=== PATIENT | female | born 1965 | race African-American/Black ===

== ENCOUNTER → 2017-06-24 | Outpatient (CLI) | payer OTHER ==
[2017-06-24 10:16] LABS: ALBUMIN 3.6 g/dL (3.4-5.0); ALBUMIN/GLOBULIN RATIO 0.8 (1.0-1.7); ALK PHOS 141 U/L (46-116); ALT (SGPT) 42 U/L (14-59); ANION GAP 7 (6-14); AST (SGOT) 30 U/L (15-37); BLOOD UREA NITROGEN 12 mg/dL (7-20); BUN/CREATININE RATIO 12 (6-20); CALCIUM 9.3 mg/dL (8.5-10.1); CARBON DIOXIDE 31 mmol/L (21-32); CHLORIDE 103 mmol/L (98-107); CHOLESTEROL 190 mg/dL (0-200); CREATINE KINASE 116 U/L (26-192); GFR 70.2; GLUCOSE 248 mg/dL (70-99); HDLC 32 mg/dL (40-60); LDLC 114 mg/dL (0-100); NON-HDL CHOLESTEROL 158 mg/dL (0-129); POTASSIUM 3.9 mmol/L (3.5-5.1); SODIUM 141 mmol/L (136-145); TOTAL BILIRUBIN 0.2 mg/dL (0.2-1.0); TOTAL PROTEIN 8.3 g/dL (6.4-8.2); TRIGLYCERIDES 219 mg/dL (0-150); VLDLC 44 mg/dL (0-40)
[2017-06-24 10:18] LABS: CHOLESTEROL/HDL RATIO 5.9
[2017-06-24 10:29] LABS: THYROID STIM HORMONE (TSH) 0.477 uIU/mL (0.358-3.74)
[2017-06-24 10:30] LABS: VITAMIN-B12 636 pg/mL (247-911)
== END | disposition home or self-care (01) ==
LOC: LAB 09:46
DX: R20.2 Paresthesia of skin (principal); E55.9 Vitamin D deficiency, unspecified; E78.5 Hyperlipidemia, unspecified
CPT/HCPCS: 36415; 80053; 80061; 82306; 82550; 82607; 84439; 84443

== ENCOUNTER 2018-02-12 20:32 | Observation (INO) | payer OTHER ==
[~2018-02-12] VITALS: Ht 152.4 cm; Wt 55.8 kg
[~2018-02-12 20:32] MED LIST: GLIM4TAB2 PO; HYDR12.58 PO; INSU100I17 SQ; INSU100I27 SQ; LOSA100T7 PO; METF10007 PO; PRED20TA PO; SITA100T PO
--- NOTE | 2018-02-12 20:39 | PHYS DOC ---
Adult General Chief Complaint Chief Complaint: DIZZY/LIGHT HEADED HPI HPI Patient is a 52 year old female who presents with vertigo and HTN She was well until 2 days ago when she had gradual onset of vertigo. This got progressively worse with vomiting and ataxia. She has frontal headache as well. She denies any focal weakness. She has not been able to take her blood pressure medications secondary to vomiting. She went to her primary doctor at [facility] who then sent her to the emergency department for further evaluation. There is concern for stroke. Review of Systems Review of Systems Constitutional: Denies fever or chills Eyes: Denies change in visual acuity, redness, or eye pain HENT: Denies nasal congestion or sore throat Respiratory: Denies cough or shortness of breath Cardiovascular: Denies chest pain or palpitations GI: Denies abdominal pain, with nausea and vomiting, denies bloody stools or diarrhea : Denies dysuria or hematuria Musculoskeletal: Denies back pain or joint pain Integument: Denies rash or skin lesions Neurologic: With headache and vertigo, no focal weakness or sensory changes Endocrine: Denies polyuria or polydipsia All other systems were reviewed and found to be within normal limits, except as documented in this note. Current Medications Current Medications Current Medications Medications (Trade) Dose Ordered Sig/Radha Start Time Stop Time Status Last Admin Dose Admin Meclizine HCl (Antivert) 25 mg 1X ONCE 02/12/18 21:30 02/12/18 21:31 DC 02/12/18 22:00 25 MG Ondansetron HCl (Zofran) 4 mg 1X ONCE 02/12/18 21:30 02/12/18 21:31 DC 02/12/18 21:30 4 MG Allergies Allergies Allergies Coded Allergies Type Severity Reaction Last Updated Verified codeine Allergy Intermediate Rash 02/12/18 Yes Physical Exam Physical Exam Constitutional: Well developed, well nourished, no acute distress, non-toxic appearance. HENT: Normocephalic, atraumatic, bilateral external ears normal, oropharynx moist, no oral exudates, nose normal. Eyes: PERRLA, EOMI, conjunctiva normal, no discharge. Neck: Normal range of motion, no tenderness, supple, no stridor. Cardiovascular:Heart rate regular rhythm, no murmur Lungs & Thorax: Bilateral breath sounds clear to auscultation Abdomen: Bowel sounds normal, soft, no tenderness, no masses, no pulsatile masses. Skin: Warm, dry, no erythema, no rash. Back: No tenderness, no CVA tenderness. Extremities: No tenderness, no cyanosis, no clubbing, ROM intact, no edema. 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 with bilateral nystagmus and ataxia Psychologic: Affect normal, judgement normal, mood normal. Current Patient Data Vital Signs Vital Signs Date Time Temp Pulse Resp B/P (MAP) Pulse Ox O2 Delivery O2 Flow Rate FiO2 02/12/18 23:16 77 18 99 02/12/18 20:45 98.6 214/90 (131) Room Air 98.6 Lab Values Laboratory Tests Test 02/12/18 21:17 White Blood Count 5.9 x10^3/uL (4.0-11.0) Red Blood Count 4.14 x10^6/uL (3.50-5.40) Hemoglobin 12.7 g/dL (12.0-15.5) Hematocrit 36.5 % (36.0-47.0) Mean Corpuscular Volume 88 fL (79-100) Mean Corpuscular Hemoglobin 31 pg (25-35) Mean Corpuscular Hemoglobin Concent 35 g/dL (31-37) Red Cell Distribution Width 14.0 % (11.5-14.5) Platelet Count 184 x10^3/uL (140-400) Neutrophils (%) (Auto) 61 % (31-73) Lymphocytes (%) (Auto) 27 % (24-48) Monocytes (%) (Auto) 6 % (0-9) Eosinophils (%) (Auto) 5 % (0-3) H Basophils (%) (Auto) 1 % (0-3) Neutrophils # (Auto) 3.6 x10^3uL (1.8-7.7) Lymphocytes # (Auto) 1.6 x10^3/uL (1.0-4.8) Monocytes # (Auto) 0.4 x10^3/uL (0.0-1.1) Eosinophils # (Auto) 0.3 x10^3/uL (0.0-0.7) Basophils # (Auto) 0.0 x10^3/uL (0.0-0.2) Urine Collection Type Unknown Urine Color Yellow Urine Clarity Clear Urine pH 8.0 Urine Specific [place] 1.010 Urine Protein 100 mg/dL (NEG-TRACE) Urine Glucose (UA) 100 mg/dL (NEG) Urine Ketones (Stick) Negative mg/dL (NEG) Urine Blood Trace (NEG) Urine Nitrite Negative (NEG) Urine Bilirubin Negative (NEG) Urine Urobilinogen Dipstick 0.2 mg/dL (0.2 mg/dL) Urine Leukocyte Esterase Negative (NEG) Urine RBC Occ /HPF (0-2) Urine WBC 5-10 /HPF (0-4) Urine Squamous Epithelial Cells Few /LPF Urine Bacteria Moderate /HPF (0-FEW) Sodium Level 141 mmol/L (136-145) Potassium Level 3.4 mmol/L (3.5-5.1) L Chloride Level 102 mmol/L (98-107) Carbon Dioxide Level 29 mmol/L (21-32) Anion Gap 10 (6-14) Blood Urea Nitrogen 12 mg/dL (7-20) Creatinine 0.9 mg/dL (0.6-1.0) Estimated GFR (Cockcroft-Gault) 79.3 BUN/Creatinine Ratio 13 (6-20) Glucose Level 187 mg/dL (70-99) H Calcium Level 9.7 mg/dL (8.5-10.1) Total Bilirubin 0.5 mg/dL (0.2-1.0) Aspartate Amino Transferase (AST) 44 U/L (15-37) H Alanine Aminotransferase (ALT) 60 U/L (14-59) H Alkaline Phosphatase 109 U/L (46-116) Troponin I Quantitative < 0.017 ng/mL (0.000-0.055) Total Protein 9.1 g/dL (6.4-8.2) H Albumin 4.3 g/dL (3.4-5.0) Albumin/Globulin Ratio 0.9 (1.0-1.7) L Laboratory Tests 02/12/18 21:17 Laboratory Tests 02/12/18 21:17 EKG EKG ECG 21:24 NSR @ 75 with normal axis, normal intervals and no acute ST-T wave changes suggestive of ischemia Radiology/Procedures Radiology/Procedures [facility] [address] [place] [address] IMAGING REPORT Signed PATIENT: SWATI BROWN ACCOUNT: [id number] : 1965 LOCATION: ER AGE: 52 SEX: F EXAM STATUS: REG ER ORD. PHYSICIAN: DAWOOD SPARKS MD REASON: Vertigo PROCEDURE: CT HEAD WO CONTRAST EXAM: CT HEAD WITHOUT CONTRAST. HISTORY: Vertigo. TECHNIQUE: Computed tomography of the head was performed without intravenous contrast. COMPARISON: 06/08/2015, 08/03/2014. FINDINGS: There is no intracranial hemorrhage. Quinteros-white differentiation is preserved. The right pontine lesion noted on prior MRI is not detectable by this technique. The ventricles are normal in size and position. The visualized paranasal sinuses appear clear. The orbits are unremarkable. The temporal bones are unremarkable. The calvarium reveals no suspicious lesions. There are atherosclerotic calcifications of the internal carotid and vertebral arteries. IMPRESSION: 1. No acute intracranial findings. MRI is more sensitive if there is persistent concern. *One or more of the following individualized dose reduction techniques were utilized for this examination: 1. Automated exposure control. 2. Adjustment of the mA and/or kV according to patient size. 3. Use of iterative reconstruction technique. Electronically signed by: Elza Duran MD (02/12/2018 9:51 PM) [facility] DICTATED and SIGNED BY: TY DURAN MD DATE: 02/12/182145 Course & Med Decision Making Course & Med Decision Making Pertinent Labs and Imaging studies reviewed. (See chart for details) Emergency Department Course Patient presents with vertigo,headache and vomiting DDx- vertigo, CVA, ICH, arrhythmia, dehydration Patient was hypertensive in the ED with persistent vertigo despite meclizine. BP improved after Labetalol IV. Head CT scan unremarkable. ECG and troponin showed no evidence of ACS. Labs remarkable for mild hypokalemia. Noting persistent vertigo, will admit for CVA evaluation. 23:00 Patient has persistent vertigo and elevated blood pressure. The patient she is agreeable for admission for further evaluation for CVA. 23:[address] Grimaldo who agrees with admission Dragon Disclaimer Dragon Disclaimer This electronic medical record was generated, in whole or in part, using a voice recognition dictation system. Departure Departure Impression: Primary Impression: Vertigo Additional Impression: Uncontrolled hypertension Disposition: 09 ADMITTED INPATIENT Admitting Physician: Santi Grimaldo Condition: STABLE Referrals: SAL FOWLER MD (PCP) Problem Qualifiers DAWOOD SPARKS MD Feb 12, 2018 20:39
[2018-02-12 21:29] LABS: BASO % 1 % (0-3); EOS # 0.3 x10^3/uL (0.0-0.7); EOS % 5 % (0-3); HEMATOCRIT 36.5 % (36.0-47.0); HEMOGLOBIN 12.7 g/dL (12.0-15.5); LYMPH # 1.6 x10^3/uL (1.0-4.8); LYMPH % 27 % (24-48); MEAN CORPUSCULAR HEMOGLOBIN 31 pg (25-35); MEAN CORPUSCULAR HGB CONC 35 g/dL (31-37); MEAN CORPUSCULAR VOLUME 88 fL (79-100); MONO # 0.4 x10^3/uL (0.0-1.1); MONO % 6 % (0-9); NEUT # 3.6 x10^3uL (1.8-7.7); NEUT % 61 % (31-73); PLATELET COUNT 184 x10^3/uL (140-400); RED BLOOD COUNT 4.14 x10^6/uL (3.50-5.40); WHITE BLOOD COUNT 5.9 x10^3/uL (4.0-11.0)
[2018-02-12 21:30] LABS: BILIRUBIN,URINE NEGATIVE (NEG); CLARITY,URINE CLEAR; COLOR,URINE YELLOW; NITRITE,URINE NEGATIVE (NEG); PROTEIN,URINE 100 mg/dL (NEG-TRACE); UROBILINOGEN,URINE 0.2 mg/dL (0.2 mg/dL)
[2018-02-12] MEDS ORDERED: MECLIZINE HCL 12.5 MG TABLET. PO ONE (21:30)
[2018-02-12] MEDS ORDERED: ONDANSETRON PF 4 MG/2 ML VIAL. IV ONE (21:30)
--- NOTE | 2018-02-12 21:31 | EKG ---
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
[2018-02-12 21:36] LABS: CALCIUM 9.7 mg/dL (8.5-10.1); CREATININE 0.9 mg/dL (0.6-1.0); GFR 79.3; POTASSIUM 3.4 mmol/L (3.5-5.1)
[2018-02-12 21:42] LABS: ALBUMIN 4.3 g/dL (3.4-5.0); ALBUMIN/GLOBULIN RATIO 0.9 (1.0-1.7); TOTAL BILIRUBIN 0.5 mg/dL (0.2-1.0); TOTAL PROTEIN 9.1 g/dL (6.4-8.2)
[2018-02-12 21:44] LABS: BACTERIA,URINE MODERATE /HPF (0-FEW); RBC,URINE OCC /HPF (0-2); SQUAMOUS EPITHELIAL CELL,UR FEW /LPF
--- NOTE | 2018-02-12 21:54 | RAD ---
EXAM: CT HEAD WITHOUT CONTRAST. HISTORY: Vertigo. TECHNIQUE: Computed tomography of the head was performed without intravenous contrast. COMPARISON: 06/08/2015, 08/03/2014. FINDINGS: There is no intracranial hemorrhage. Quinteros-white differentiation is preserved. The right pontine lesion noted on prior MRI is not detectable by this technique. The ventricles are normal in size and position. The visualized paranasal sinuses appear clear. The orbits are unremarkable. The temporal bones are unremarkable. The calvarium reveals no suspicious lesions. There are atherosclerotic calcifications of the internal carotid and vertebral arteries. IMPRESSION: 1. No acute intracranial findings. MRI is more sensitive if there is persistent concern. *One or more of the following individualized dose reduction techniques were utilized for this examination: 1. Automated exposure control. 2. Adjustment of the mA and/or kV according to patient size. 3. Use of iterative reconstruction technique. Electronically signed by: Elza Duran MD (02/12/2018 9:51 PM) [facility]
[2018-02-12] MEDS ORDERED: LABETALOL 20 MG/4 ML DISP.SYRIN. IVP ONE (23:30)
[2018-02-13] MEDS ORDERED: ACETAMINOPHEN 500 MG TABLET PO ONE (01:00)
[2018-02-13 03:00] VITALS: BP 108/58
[2018-02-13] MEDS ORDERED: LOSA100T7 PO (03:45)
[2018-02-13] MEDS ORDERED: DOCU-109 PO (03:50)
[2018-02-13] MEDS ORDERED: INSU100V13 SQ (03:50)
[2018-02-13] MEDS ORDERED: TRAM50TA PO (03:50)
[2018-02-13] MEDS ORDERED: AMLO5TAB4 PO (03:50)
[2018-02-13] MEDS ORDERED: METF10007 PO (03:50)
[2018-02-13] MEDS ORDERED: ASPI-612 PO (03:50)
[2018-02-13] MEDS ORDERED: GABA-586 PO (03:50)
[2018-02-13] MEDS ORDERED: HYDR12.58 PO (03:50)
[2018-02-13 07:00] VITALS: BP_SYST 118; BP_SYST 97; BP_DIAS 61; BP_DIAS 62
[2018-02-13] MEDS ORDERED: DOCUSATE SODIUM 100 MG CAPSULE. PO PRN (08:30)
[2018-02-13] MEDS ORDERED: HYDROCHLOROTHIAZIDE PO SCH (09:00)
[2018-02-13] MEDS ORDERED: NON FORMULARY ITEM (Metformin Hcl 1 TAB) PO SCH (09:00)
[2018-02-13] MEDS ORDERED: ASPIRIN ENTERIC COATED 81 MG TABLET.DR. PO SCH (09:00)
[2018-02-13] MEDS ORDERED: LOSARTAN POTASSIUM PO SCH (09:00)
[2018-02-13] MEDS ORDERED: DEXTROSE 50% 25 GM / 50ML DISP.SYRIN. IV PRN (09:00)
[2018-02-13] MEDS ORDERED: INSULIN DETEMIR 60 UNIT SQ SCH (09:00)
--- NOTE | 2018-02-13 09:03 | PDOC ---
Provider Note Provider Note [id number] SAL FOWLER MD Feb 13, 2018 09:03
[2018-02-13] MEDS: amLODIPine BESYLATE 5 MG TABLET PO SCH (09:24)
[2018-02-13] MEDS: traMADol 50 MG TABLET PO PRN ×2 (09:24→22:09)
[2018-02-13] MEDS: GABAPENTIN 300 MG CAPSULE. PO SCH ×3 (09:24→22:09)
[2018-02-13] MEDS: LOSARTAN POTASSIUM 50 MG TABLET. PO SCH (10:00)
--- NOTE | 2018-02-13 10:39 | HP ---
ADMIT DATE: 02/13/2018 CHIEF COMPLAINT: Headache, nausea and dizziness. HISTORY OF PRESENT ILLNESS: A 52-year-old black female who is an insulin-dependent type 2 diabetic with controlled hypertension. 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 About 24-48 hours prior to admission, she developed diffuse frontal headache with light sensitivity and then nausea and vomiting, but not associated with throbbing, trauma, fever, chills, cough or any of the other specific complaints. She was unable to hold medicine down and her blood pressure was high when she was seen at urgent care, but she had been taking her medications regularly prior to that. CT scan of the head in the ER was unremarkable as were the lab work and she was admitted and feels somewhat better at this time. She has what sounds like vague feeling of dizziness, but not an overt vertigo. PAST MEDICAL HISTORY: Well-documented right thalamic infarct 2-3 years ago. Recent A1c in the office was around 7.2. Blood pressure has been controlled with 3 medications. ALLERGIES: LISTED TO CODEINE. SOCIAL HISTORY: She is employed. She is . Nondrinker, nonsmoker. FAMILY HISTORY: Unremarkable. REVIEW OF SYSTEMS: No other complaints. PHYSICAL EXAMINATION: ENT: All within normal limits. No nystagmus. TMs are clear. NECK: Revealed no carotid bruits, nodes, stiffness or meningeal signs. CARDIOVASCULAR: Regular rate. No irregular beat or murmur. ABDOMEN: Soft, benign and nontender. EXTREMITIES: Good pedal and radial pulses. No joint or skin lesions. NEUROLOGIC: Cerebellar function including [id number], [id number] and rapid alternating pain movements is unremarkable. He moves all extremities well. Sensory abnormal on the left side, arm and leg, with previous exams with no acute changes. Gait was not tested. Cranial nerves and mental status intact. EOMs are full. ASSESSMENT: Severe frontal headache associated with nausea, vomiting and photophobia. She has no history of migraines. She does have a history of a thalamic infarct, diabetes and hypertension. PLAN: MRI without contrast already ordered. We will check a sed rate, but doubt this is vasculitis. Unusual for migraine she developed postmenopausal, but certainly has some migrainous component to this. No sign of meningismus, so possibility of subarachnoid hemorrhage seems low at this time. Neurology consultation as well. SAL FOWLER MD DR: KEMI/abbi JOB#: [id number] / [id number]
[2018-02-13 11:00] VITALS: BP 97/62
[2018-02-13] MEDS: hydroCHLOROthiazide 12.5 MG CAPSULE PO SCH (11:18)
[2018-02-13] MEDS: metFORMIN 500 MG TABLET PO SCH ×2 (11:51→17:06)
[2018-02-13] MEDS ORDERED: NON FORMULARY ITEM (Insulin Aspart (Novolog Flexpen) 0 UNITS) SQ SCH (12:00)
[2018-02-13] MEDS ORDERED: ACETAMINOPHEN 650 MG SUPP.RECT. PR PRN (14:00)
[2018-02-13] MEDS ORDERED: ASPIRIN 300 MG SUPP.RECT PR PRN (14:00)
[2018-02-13 15:04] VITALS: BP 110/63
--- NOTE | 2018-02-13 15:42 | PDOC2 ---
NEUROLOGY CONSULT Date of Admission Date of Admission DATE: 02/13/18 TIME: 15:33 Reason for Consult Reason for Consult: vertigo Referring Physician Referring Physician: Dr. Stone Source Source: Chart review, Patient History of Present Illness History of Present Illness The patient is a 52-year-old right-handed female with history of right pontine infarct with microhemorrhage (MRI, 06/08/15), who noticed the gradual onset of vertigo yesterday. She also had a headache. There was no diplopia, dysphagia, but she had some trouble speaking and thinking. Her blood pressure was high, 214 /90 in the emergency room. She is feeling better now. She has seen Dr. Doherty for persistent neuralgic pain on the left side of her body following the stroke. She is treating her with gabapentin which helped some. Carotid artery studies and echocardiogram were -2 years ago. Laboratory studies were positive for low vitamin D level recently. Past Medical History Cardiovascular: HTN CENTRAL NERVOUS SYSTEM: CVA GI: Hemorrhoids Endocrine: Diabetes Past Surgical History Past Surgical History: Tubal Ligation Family History Family History: No pertinent hx (adopted) Social History Social History , no tobacco or alcohol Current Medications Current Medications Current Medications Ondansetron HCl (Zofran) 4 mg 1X ONCE IV Last administered on 02/12/18at 21:30 ; Start 02/12/18 at 21:30; Stop 02/12/18 at 21:31; Status DC Meclizine HCl (Antivert) 25 mg 1X ONCE PO Last administered on 02/12/18at 22: 00; Start 02/12/18 at 21:30; Stop 02/12/18 at 21:31; Status DC Labetalol HCl (Normodyne Iv Push) 20 mg 1X ONCE IVP Last administered on 02/13at 00:30; Start 02/12/18 at 23:30; Stop 02/12/18 at 23:31; Status DC Acetaminophen (Tylenol) 1,000 mg 1X ONCE PO Last administered on 02/13/18at 00 :54; Start 02/13/18 at 01:00; Stop 02/13/18 at 01:01; Status DC Amlodipine Besylate (Norvasc) 5 mg DAILY PO Last administered on 02/13/18at 09: 24; Start 02/13/18 at 09:00 Aspirin (Ecotrin) 81 mg DAILY08 PO Last administered on 02/13/18at 09:24; Start 02/13/18 at 09:00; Stop 02/13/18 at 14:52; Status DC Docusate Sodium (Colace) 100 mg PRN DAILY PRN PO HARD STOOLS; Start 02/13/18 at 08:30 Tramadol HCl (Ultram) 50 mg PRN Q6HRS PRN PO PAIN MILD Last administered on 03/23at 09:24; Start 02/13/18 at 08:30 Gabapentin (Neurontin) 300 mg TID PO Last administered on 02/13/18at 09:24; Start 02/13/18 at 09:00 Hydrochlorothiazide (Microzide) 12.5 mg DAILY PO ; Start 02/13/18 at 10:00 Non-Formulary Medication (Hydrochlorothiazide (Hydrochlorothiazide Tablet)) 2 tab DAILY PO ; Start 02/13/18 at 09:00; Stop 02/13/18 at 09:00; Status DC Non-Formulary Medication (Insulin Aspart (Novolog Flexpen)) TIDWMEALS SQ ; Start 02/13/18 at 12:00; Stop 02/13/18 at 12:00; Status DC Non-Formulary Medication (Insulin Detemir (Levemir Flextouch)) 60 units DAILY SQ ; Start 02/13/18 at 09:00; Stop 02/13/18 at 09:00; Status DC Insulin Glargine (Lantus) 105 units QHS SQ ; Start 02/13/18 at 21:00 Non-Formulary Medication (Losartan Potassium ) 1 tab DAILY PO ; Start 02/13/18 at 09:00; Status UNV Losartan Potassium (Cozaar) 100 mg DAILY PO ; Start 02/13/18 at 10:00 Non-Formulary Medication (Metformin Hcl ) 1 tab BID PO ; Start 02/13/18 at 09: 00; Stop 02/13/18 at 09:00; Status DC Metformin HCl (Glucophage) 1,000 mg BIDWMEALS PO Last administered on at 11:51; Start 02/13/18 at 09:30 Dextrose (Dextrose 50%-Water Syringe) 12.5 gm PRN Q15MIN PRN IV SEE COMMENTS; Start 02/13/18 at 09:00 Acetaminophen (Tylenol) 650 mg PRN Q6HRS PRN PO TEMP > 100.4F; Start 02/13/18 at 14:00 Acetaminophen (Tylenol Supp) 650 mg PRN Q4HRS PRN MI TEMP > 100.4F; Start 03/23 at 14:00 Aspirin (Ecotrin) 325 mg DAILYWBKFT PO ; Start 02/14/18 at 08:00 Aspirin (Aspirin) 300 mg PRN DAILY PRN MI IF UNABLE TO TAKE PO; Start at 14:00 Active Scripts Active Prednisone 20 Mg Tablet 50 Mg PO DAILY Levemir Flextouch (Insulin Detemir) 300 Units/3 Ml Insuln.pen 60 Units SQ DAILY Novolog Flexpen (Insulin Aspart) 300 Units/3 Ml Insuln.pen 0 Units SQ TIDWMEALS Reported Levemir (Insulin Detemir) 100 Unit/1 Ml Vial 105 Unit SQ HS Colace (Docusate Sodium) 100 Mg Capsule 1 Cap PO PRN DAILY Aspirin Ec (Aspirin) 81 Mg Tablet.dr 1 Tab PO DAILY Tramadol Hcl 50 Mg Tablet 50 Mg PO Q6HRS PRN Metformin Hcl 1,000 Mg Tablet 1,000 Mg PO BID Gabapentin 300 Mg Capsule 300 Mg PO TID Norvasc (Amlodipine Besylate) 5 Mg Tablet 1 Tab PO DAILY Hydrochlorothiazide Tablet (Hydrochlorothiazide) 12.5 Mg Tablet 2 Tab PO DAILY Losartan Potassium 100 Mg Tablet 100 Mg PO DAILY Hydrochlorothiazide Tablet (Hydrochlorothiazide) 12.5 Mg Tablet 1 Tab PO DAILY Metformin Hcl 1,000 Mg Tablet 1 Tab PO BID Losartan Potassium 100 Mg Tablet 1 Tab PO DAILY Allergies Allergies: Coded Allergies: codeine (Verified Allergy, Intermediate, Rash, 02/12/18) ROS Review of System Patient denies fevers, chills, weight loss, dyspnea, angina, abdominal pain, change in bowels, or dysuria. 14-point review of systems is negative. Physical Exam Physical Examination General: Well-developed, well-nourished, black female, in no acute distress HEENT: Normocephalic andatraumatic. Temporal arteriespulsatile and nontender. Neck: Supple without bruit, no meningismus Musculoskeletal: Stability:see neurologic. Gait exam:see neurologic. Tone:see neurologic. Strength:see neurologic. Neurological: Mental Status:intact, orientation, memory, attention span/concentration, language, fund of knowledge normal. Cranial Nerves:Pupils equal and reactive to light, extraocular movements areintact, visual hernadez are full to confrontation. Facial sensation is normal. There is no facial asymmetry. Vestibulo-ocular reflex is intact. Palate elvates and tongue protrudes in midline. All other cranial related problems are negative except as mentioned before.Reflexes:2+ and symmetric with flexor plantar responses. Motor:5/5 strength with normal tone and bulk. Coordination:Finger-nose finger and heel-to -richards testing are normal. Rapid alternating movements and fine finger movements are intact. Gait:Normal, including tandem. Sensory:Hypesthesia on left side. Vitals VITALS Vital Signs Date Time Temp Pulse Resp B/P (MAP) Pulse Ox O2 Delivery O2 Flow Rate FiO2 02/13/18 15:04 98.3 82 20 110/63 (79) 97 Room Air 98.3 Labs Labs Laboratory Tests Test 02/12/18 21:17 02/13/18 10:50 White Blood Count 5.9 x10^3/uL (4.0-11.0) Red Blood Count 4.14 x10^6/uL (3.50-5.40) Hemoglobin 12.7 g/dL (12.0-15.5) Hematocrit 36.5 % (36.0-47.0) Mean Corpuscular Volume 88 fL (79-100) Mean Corpuscular Hemoglobin 31 pg (25-35) Mean Corpuscular Hemoglobin Concent 35 g/dL (31-37) Red Cell Distribution Width 14.0 % (11.5-14.5) Platelet Count 184 x10^3/uL (140-400) Neutrophils (%) (Auto) 61 % (31-73) Lymphocytes (%) (Auto) 27 % (24-48) Monocytes (%) (Auto) 6 % (0-9) Eosinophils (%) (Auto) 5 % (0-3) Basophils (%) (Auto) 1 % (0-3) Neutrophils # (Auto) 3.6 x10^3uL (1.8-7.7) Lymphocytes # (Auto) 1.6 x10^3/uL (1.0-4.8) Monocytes # (Auto) 0.4 x10^3/uL (0.0-1.1) Eosinophils # (Auto) 0.3 x10^3/uL (0.0-0.7) Basophils # (Auto) 0.0 x10^3/uL (0.0-0.2) Urine Collection Type Unknown Urine Color Yellow Urine Clarity Clear Urine pH 8.0 Urine Specific [place] 1.010 Urine Protein 100 mg/dL (NEG-TRACE) Urine Glucose (UA) 100 mg/dL (NEG) Urine Ketones (Stick) Negative mg/dL (NEG) Urine Blood Trace (NEG) Urine Nitrite Negative (NEG) Urine Bilirubin Negative (NEG) Urine Urobilinogen Dipstick 0.2 mg/dL (0.2 mg/dL) Urine Leukocyte Esterase Negative (NEG) Urine RBC Occ /HPF (0-2) Urine WBC 5-10 /HPF (0-4) Urine Squamous Epithelial Cells Few /LPF Urine Bacteria Moderate /HPF (0-FEW) Sodium Level 141 mmol/L (136-145) Potassium Level 3.4 mmol/L (3.5-5.1) Chloride Level 102 mmol/L (98-107) Carbon Dioxide Level 29 mmol/L (21-32) Anion Gap 10 (6-14) Blood Urea Nitrogen 12 mg/dL (7-20) Creatinine 0.9 mg/dL (0.6-1.0) Estimated GFR (Cockcroft-Gault) 79.3 BUN/Creatinine Ratio 13 (6-20) Glucose Level 187 mg/dL (70-99) Calcium Level 9.7 mg/dL (8.5-10.1) Total Bilirubin 0.5 mg/dL (0.2-1.0) Aspartate Amino Transf (AST/SGOT) 44 U/L (15-37) Alanine Aminotransferase (ALT/SGPT) 60 U/L (14-59) Alkaline Phosphatase 109 U/L (46-116) Troponin I Quantitative < 0.017 ng/mL (0.000-0.055) Total Protein 9.1 g/dL (6.4-8.2) Albumin 4.3 g/dL (3.4-5.0) Albumin/Globulin Ratio 0.9 (1.0-1.7) Erythrocyte Sedimentation Rate 51 (0-25) Laboratory Tests Test 02/12/18 21:17 02/13/18 10:50 White Blood Count 5.9 x10^3/uL (4.0-11.0) Red Blood Count 4.14 x10^6/uL (3.50-5.40) Hemoglobin 12.7 g/dL (12.0-15.5) Hematocrit 36.5 % (36.0-47.0) Mean Corpuscular Volume 88 fL (79-100) Mean Corpuscular Hemoglobin 31 pg (25-35) Mean Corpuscular Hemoglobin Concent 35 g/dL (31-37) Red Cell Distribution Width 14.0 % (11.5-14.5) Platelet Count 184 x10^3/uL (140-400) Neutrophils (%) (Auto) 61 % (31-73) Lymphocytes (%) (Auto) 27 % (24-48) Monocytes (%) (Auto) 6 % (0-9) Eosinophils (%) (Auto) 5 % (0-3) Basophils (%) (Auto) 1 % (0-3) Neutrophils # (Auto) 3.6 x10^3uL (1.8-7.7) Lymphocytes # (Auto) 1.6 x10^3/uL (1.0-4.8) Monocytes # (Auto) 0.4 x10^3/uL (0.0-1.1) Eosinophils # (Auto) 0.3 x10^3/uL (0.0-0.7) Basophils # (Auto) 0.0 x10^3/uL (0.0-0.2) Urine Collection Type Unknown Urine Color Yellow Urine Clarity Clear Urine pH 8.0 Urine Specific [place] 1.010 Urine Protein 100 mg/dL (NEG-TRACE) Urine Glucose (UA) 100 mg/dL (NEG) Urine Ketones (Stick) Negative mg/dL (NEG) Urine Blood Trace (NEG) Urine Nitrite Negative (NEG) Urine Bilirubin Negative (NEG) Urine Urobilinogen Dipstick 0.2 mg/dL (0.2 mg/dL) Urine Leukocyte Esterase Negative (NEG) Urine RBC Occ /HPF (0-2) Urine WBC 5-10 /HPF (0-4) Urine Squamous Epithelial Cells Few /LPF Urine Bacteria Moderate /HPF (0-FEW) Sodium Level 141 mmol/L (136-145) Potassium Level 3.4 mmol/L (3.5-5.1) Chloride Level 102 mmol/L (98-107) Carbon Dioxide Level 29 mmol/L (21-32) Anion Gap 10 (6-14) Blood Urea Nitrogen 12 mg/dL (7-20) Creatinine 0.9 mg/dL (0.6-1.0) Estimated GFR (Cockcroft-Gault) 79.3 BUN/Creatinine Ratio 13 (6-20) Glucose Level 187 mg/dL (70-99) Calcium Level 9.7 mg/dL (8.5-10.1) Total Bilirubin 0.5 mg/dL (0.2-1.0) Aspartate Amino Transf (AST/SGOT) 44 U/L (15-37) Alanine Aminotransferase (ALT/SGPT) 60 U/L (14-59) Alkaline Phosphatase 109 U/L (46-116) Troponin I Quantitative < 0.017 ng/mL (0.000-0.055) Total Protein 9.1 g/dL (6.4-8.2) Albumin 4.3 g/dL (3.4-5.0) Albumin/Globulin Ratio 0.9 (1.0-1.7) Erythrocyte Sedimentation Rate 51 (0-25) Images Images Head CT: There is no intracranial hemorrhage. Quinteros-white differentiation is preserved. The right pontine lesion noted on prior MRI is not detectable by this technique. The ventricles are normal in size and position. The visualized paranasal sinuses appear clear. The orbits are unremarkable. The temporal bones are unremarkable. The calvarium reveals no suspicious lesions. There are atherosclerotic calcifications of the internal carotid and vertebral arteries. IMPRESSION: 1. No acute intracranial findings. MRI is more sensitive if there is persistent concern. Assessment/Plan Assessment/Plan Impression: Hypertensive encephalopathy, doubt new stroke Prior right pontine stroke with residual sensory symptoms on the left side Recommendations: Aspirin Check lipids, start statin if abnormal MRI of the brain Echocardiogram Carotid Doppler studies Rehabilitation screening Aim for discharge tomorrow if blood pressure remains stable and workup is negative. Thank you for letting me help with the patient's care. ANJALI ADEN MD Feb 13, 2018 15:42
--- NOTE | 2018-02-13 16:03 | RAD ---
MRI Brain without contrast History: Vertigo and dizziness for 3 days Technique: Multiplanar, multisequential noncontrast MR imaging was performed of the brain. Contrast: None Comparison: 06/08/2015 Findings: There is some motion degradation. There is no evidence of recent infarct or intracranial mass effect. Ventricular size is within normal limits. There are a few scattered foci of T2 and FLAIR hyperintense signal of the supratentorial parenchyma bilaterally probably unchanged allowing for motion for both exams. Previously seen T2 and FLAIR hyperintense signal of the right destiny has decreased, no appreciable residual signal change. There is a tiny likely old lacunar infarct of the inferior right cerebellum more apparent on this exam. There is preservation of the major arterial intracranial flow voids at the skull base although poorly evaluated in part from motion. The paranasal sinuses and the mastoid air cells are overall aerated. Cerebellar tonsils are normal in location. There is preserved marrow signal of the clivus. Impression: 1. There is no evidence of recent infarct or intracranial mass effect. Scattered mild T2 and FLAIR hyperintense signal of the supratentorial parenchyma is probably due to chronic microvascular ischemic disease, small old lacunar infarct of the right cerebellum now present. Electronically signed by: Yomi Carvajal MD (02/13/2018 4:00 PM) [id number]
[2018-02-13] MEDS: ACETAMINOPHEN 325 MG TABLET. PO PRN (16:17)
[2018-02-13 19:00] VITALS: BP 142/66
--- NOTE | 2018-02-13 19:56 | RAD ---
EXAM: Carotid Doppler sonogram. HISTORY: Vertigo, headache, hypertension, diabetes, transient ischemic attack. TECHNIQUE: Quinteros scale and color Doppler sonographic evaluation of the neck with spectral waveform analysis was performed and static images are submitted for review. FINDINGS: RIGHT: The peak systolic velocity within the common carotid artery is 86 cm/sec. The peak systolic velocity within the internal carotid artery is 98 cm/sec and the end diastolic velocity within the internal carotid artery is 24 cm/sec. The ICA/CCA ratio is 1.14. Grayscale images demonstrate no grayscale stenosis. LEFT: The peak systolic velocity within the common carotid artery is 121 cm/sec. The peak systolic velocity within the internal carotid artery is 88 cm/sec and the end diastolic velocity within the internal carotid artery is 24 cm/sec. The ICA/CCA ratio is 0.88. Grayscale images demonstrate no grayscale stenosis. There is antegrade flow within both vertebral arteries. IMPRESSION: 1. No evidence of hemodynamically significant stenosis. PQRS Compliance Statement - Stenosis calculations for CT, MR and conventional angiography are based upon measurement of the distal ICA diameter in accordance with the NASCET methodology. Stenosis calculations for carotid ultrasound studies are derived from validated velocity criteria which are known to correlate with the NASCET methodology. Electronically signed by: Elza Duran MD (02/13/2018 7:53 PM) [facility]
[2018-02-13] MEDS ORDERED: INSULIN GLARGINE 300 UNITS/3 ML INSULN.PEN. SQ SCH (21:00)
[2018-02-13 23:00] VITALS: BP 144/74
[2018-02-14 03:00] VITALS: BP 129/58
[2018-02-14] MEDS: ACETAMINOPHEN 325 MG TABLET. PO PRN (04:37)
[2018-02-14 05:32] LABS: CHOLESTEROL/HDL RATIO 5.6
[2018-02-14 07:00] VITALS: BP 117/64
[2018-02-14] MEDS ORDERED: ASPIRIN ENTERIC COATED 325 MG TABLET.DR. PO SCH (08:00)
--- NOTE | 2018-02-14 08:36 | DISCH ---
DISCHARGE INSTRUCTIONS Condition on Discharge Condition on Discharge: Stable Activity After Discharge Activity Instructions for Disc: Activity as tolerated Diet after Discharge Diet after Discharge: Diabetic No Calorie Level Checks after Discharge Checks after discharge: Check blood sugar, ac/hs Follow-Up Follow up with: as scheduled Treatment/Equipment after DC Adaptive Equipment Issued: None SAL FOWLER MD Feb 14, 2018 08:36
--- NOTE | 2018-02-14 08:39 | PDOC ---
Provider Note Provider Note [id number] SAL FOWLER MD Feb 14, 2018 08:39
[2018-02-14] MEDS: GABAPENTIN 300 MG CAPSULE. PO SCH (08:46)
[2018-02-14] MEDS: hydroCHLOROthiazide 12.5 MG CAPSULE PO SCH (08:47)
[2018-02-14] MEDS: LOSARTAN POTASSIUM 50 MG TABLET. PO SCH (08:47)
[2018-02-14 08:48] VITALS: BP 117/64
[2018-02-14] MEDS: amLODIPine BESYLATE 5 MG TABLET PO SCH (08:48)
[2018-02-14] MEDS: traMADol 50 MG TABLET PO PRN (08:48)
[2018-02-14] MEDS: metFORMIN 500 MG TABLET PO SCH (08:48)
--- NOTE | 2018-02-14 08:58 | DS ---
DATE OF DISCHARGE: 02/14/2018 HOSPITAL SUMMARY: A 52-year-old black female, known insulin-dependent type 2 diabetic with hypertension, came in with 2 days of nausea, vomiting, frontal headache and some vertigo-like dizziness. She had been on all her medications prior to the onset of the symptoms and no new recent medication changes. CBC and chemistry profile were unremarkable. Sed rate slightly elevated at 51 and ALT 60, AST 44, otherwise liver function tests were normal. Lipid profile, excellent cholesterol 178, HDL 32, LDL 100. Urine was clear except some protein and sugar present. CT scan of the head was normal. MRI of the brain without contrast showed no new recent infarct. There was a small area in the right destiny from previous CVA. Carotid Dopplers showed no hemodynamically significant stenosis. She was monitored. Home meds resumed and her blood pressure came down quickly. Blood pressure had not been higher prior to the onset of the symptoms, was not felt to be related to her headache. Blood sugars have been good. She is feeling somewhat better and is able to be followed as an outpatient at this point. FINAL DIAGNOSES: 1. Frontal headache and vertigo, etiology undetermined, possibly a viral syndrome. 2. Transaminitis, likely secondary to nonalcoholic fatty liver disease. OPERATIONS, PROCEDURES, COMPLICATIONS: None. CONSULTATIONS: Dr. Duran. DISPOSITION: Home meds remain the same at this point and office followup in 1 week. Wellbutrin has been added recently for depression, but was not causing headache after starting the medication. She will try some Excedrin Migraine for possible benefit of this type of headache and further testing as an outpatient should her symptoms persist. SAL FOWLER MD DR: KEMI/abbi JOB#: [id number] / [id number]
--- NOTE | 2018-02-14 11:57 | PDOC ---
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 Stone to start this as an outpatient. Patient already discharged from the time I saw her until I wrote this note. Follow-up with neurology as needed. Subjective Feels fine, wants to go home Objective Vital Signs Date Time Temp Pulse Resp B/P (MAP) Pulse Ox O2 Delivery O2 Flow Rate FiO2 02/14/18 09:48 Room Air 02/14/18 08:48 69 117/64 02/14/18 07:00 98.3 20 97 98.3 Intake and Output 02/14/18 07:00 Intake Total 630 ml Output Total 0 ml Balance 630 ml Intake Oral 630 ml Output Urine Total 0 ml # Voids 4 PHYSICAL EXAM Alert. Oriented to time, place and person. PERRL. EOMI. CN: no focal findings. Muscle tone: normal. Muscle strength: 5/5 DTR: 2+ Plantar reflex: flexor Gait: not examined in bed. Sensory exam: left hemihypesthesia No cerebellar signs elicited. Review of Relevant I have reviewed the following items brennan (where applicable) has been applied. Labs Laboratory Tests Test 02/12/18 21:17 02/13/18 10:50 02/13/18 22:00 02/14/18 04:10 White Blood Count 5.9 x10^3/uL (4.0-11.0) Red Blood Count 4.14 x10^6/uL (3.50-5.40) Hemoglobin 12.7 g/dL (12.0-15.5) Hematocrit 36.5 % (36.0-47.0) Mean Corpuscular Volume 88 fL (79-100) Mean Corpuscular Hemoglobin 31 pg (25-35) Mean Corpuscular Hemoglobin Concent 35 g/dL (31-37) Red Cell Distribution Width 14.0 % (11.5-14.5) Platelet Count 184 x10^3/uL (140-400) Neutrophils (%) (Auto) 61 % (31-73) Lymphocytes (%) (Auto) 27 % (24-48) Monocytes (%) (Auto) 6 % (0-9) Eosinophils (%) (Auto) 5 % (0-3) Basophils (%) (Auto) 1 % (0-3) Neutrophils # (Auto) 3.6 x10^3uL (1.8-7.7) Lymphocytes # (Auto) 1.6 x10^3/uL (1.0-4.8) Monocytes # (Auto) 0.4 x10^3/uL (0.0-1.1) Eosinophils # (Auto) 0.3 x10^3/uL (0.0-0.7) Basophils # (Auto) 0.0 x10^3/uL (0.0-0.2) Urine Collection Type Unknown Urine Color Yellow Urine Clarity Clear Urine pH 8.0 Urine Specific [place] 1.010 Urine Protein 100 mg/dL (NEG-TRACE) Urine Glucose (UA) 100 mg/dL (NEG) Urine Ketones (Stick) Negative mg/dL (NEG) Urine Blood Trace (NEG) Urine Nitrite Negative (NEG) Urine Bilirubin Negative (NEG) Urine Urobilinogen Dipstick 0.2 mg/dL (0.2 mg/dL) Urine Leukocyte Esterase Negative (NEG) Urine RBC Occ /HPF (0-2) Urine WBC 5-10 /HPF (0-4) Urine Squamous Epithelial Cells Few /LPF Urine Bacteria Moderate /HPF (0-FEW) Sodium Level 141 mmol/L (136-145) Potassium Level 3.4 mmol/L (3.5-5.1) Chloride Level 102 mmol/L (98-107) Carbon Dioxide Level 29 mmol/L (21-32) Anion Gap 10 (6-14) Blood Urea Nitrogen 12 mg/dL (7-20) Creatinine 0.9 mg/dL (0.6-1.0) Estimated GFR (Cockcroft-Gault) 79.3 BUN/Creatinine Ratio 13 (6-20) Glucose Level 187 mg/dL (70-99) Calcium Level 9.7 mg/dL (8.5-10.1) Total Bilirubin 0.5 mg/dL (0.2-1.0) Aspartate Amino Transf (AST/SGOT) 44 U/L (15-37) Alanine Aminotransferase (ALT/SGPT) 60 U/L (14-59) Alkaline Phosphatase 109 U/L (46-116) Troponin I Quantitative < 0.017 ng/mL (0.000-0.055) Total Protein 9.1 g/dL (6.4-8.2) Albumin 4.3 g/dL (3.4-5.0) Albumin/Globulin Ratio 0.9 (1.0-1.7) Erythrocyte Sedimentation Rate 51 (0-25) Glucose (Fingerstick) 239 mg/dL (70-99) Triglycerides Level 228 mg/dL (0-150) Cholesterol Level 178 mg/dL (0-200) LDL Cholesterol, Calculated 100 mg/dL (0-100) VLDL Cholesterol, Calculated 46 mg/dL (0-40) Non-HDL Cholesterol Calculated 146 mg/dL (0-129) HDL Cholesterol 32 mg/dL (40-60) Cholesterol/HDL Ratio 5.6 Test 02/14/18 07:31 Glucose (Fingerstick) 157 mg/dL (70-99) Laboratory Tests Test 02/13/18 22:00 02/14/18 04:10 02/14/18 07:31 Glucose (Fingerstick) 239 mg/dL (70-99) 157 mg/dL (70-99) Triglycerides Level 228 mg/dL (0-150) Cholesterol Level 178 mg/dL (0-200) LDL Cholesterol, Calculated 100 mg/dL (0-100) VLDL Cholesterol, Calculated 46 mg/dL (0-40) Non-HDL Cholesterol Calculated 146 mg/dL (0-129) HDL Cholesterol 32 mg/dL (40-60) Cholesterol/HDL Ratio 5.6 Medications Current Medications Ondansetron HCl (Zofran) 4 mg 1X ONCE IV Last administered on 02/12/18at 21:30 ; Start 02/12/18 at 21:30; Stop 02/12/18 at 21:31; Status DC Meclizine HCl (Antivert) 25 mg 1X ONCE PO Last administered on 02/12/18at 22: 00; Start 02/12/18 at 21:30; Stop 02/12/18 at 21:31; Status DC Labetalol HCl (Normodyne Iv Push) 20 mg 1X ONCE IVP Last administered on 02/13at 00:30; Start 02/12/18 at 23:30; Stop 02/12/18 at 23:31; Status DC Acetaminophen (Tylenol) 1,000 mg 1X ONCE PO Last administered on 02/13/18at 00 :54; Start 02/13/18 at 01:00; Stop 02/13/18 at 01:01; Status DC Amlodipine Besylate (Norvasc) 5 mg DAILY PO Last administered on 02/14/18at 08: 48; Start 02/13/18 at 09:00; Stop 02/14/18 at 11:05; Status DC Aspirin (Ecotrin) 81 mg DAILY08 PO Last administered on 02/13/18at 09:24; Start 02/13/18 at 09:00; Stop 02/13/18 at 14:52; Status DC Docusate Sodium (Colace) 100 mg PRN DAILY PRN PO HARD STOOLS; Start 02/13/18 at 08:30; Stop 02/14/18 at 11:05; Status DC Tramadol HCl (Ultram) 50 mg PRN Q6HRS PRN PO PAIN MILD Last administered on 04/22at 08:48; Start 02/13/18 at 08:30; Stop 02/14/18 at 11:05; Status DC Gabapentin (Neurontin) 300 mg TID PO Last administered on 02/14/18at 08:46; Start 02/13/18 at 09:00; Stop 02/14/18 at 11:05; Status DC Hydrochlorothiazide (Microzide) 12.5 mg DAILY PO Last administered on at 08:47; Start 02/13/18 at 10:00; Stop 02/14/18 at 11:05; Status DC Non-Formulary Medication (Hydrochlorothiazide (Hydrochlorothiazide Tablet)) 2 tab DAILY PO ; Start 02/13/18 at 09:00; Stop 02/13/18 at 09:00; Status DC Non-Formulary Medication (Insulin Aspart (Novolog Flexpen)) TIDWMEALS SQ ; Start 02/13/18 at 12:00; Stop 02/13/18 at 12:00; Status DC Non-Formulary Medication (Insulin Detemir (Levemir Flextouch)) 60 units DAILY SQ ; Start 02/13/18 at 09:00; Stop 02/13/18 at 09:00; Status DC Insulin Glargine (Lantus) 105 units QHS SQ Last administered on 02/13/18at 22: 16; Start 02/13/18 at 21:00; Stop 02/14/18 at 11:05; Status DC Non-Formulary Medication (Losartan Potassium ) 1 tab DAILY PO ; Start 02/13/18 at 09:00; Status UNV Losartan Potassium (Cozaar) 100 mg DAILY PO Last administered on 02/14/18at 08: 47; Start 02/13/18 at 10:00; Stop 02/14/18 at 11:05; Status DC Non-Formulary Medication (Metformin Hcl ) 1 tab BID PO ; Start 02/13/18 at 09: 00; Stop 02/13/18 at 09:00; Status DC Metformin HCl (Glucophage) 1,000 mg BIDWMEALS PO Last administered on at 08:48; Start 02/13/18 at 09:30; Stop 02/14/18 at 11:05; Status DC Dextrose (Dextrose 50%-Water Syringe) 12.5 gm PRN Q15MIN PRN IV SEE COMMENTS; Start 02/13/18 at 09:00; Stop 02/14/18 at 11:05; Status DC Acetaminophen (Tylenol) 650 mg PRN Q6HRS PRN PO TEMP > 100.4F Last administered on 02/14/18at 04:37; Start 02/13/18 at 14:00; Stop 02/14/18 at 11 :05; Status DC Acetaminophen (Tylenol Supp) 650 mg PRN Q4HRS PRN SC TEMP > 100.4F; Start 03/23 at 14:00; Stop 02/14/18 at 11:05; Status DC Aspirin (Ecotrin) 325 mg DAILYWBKFT PO Last administered on 02/14/18at 08:46; Start 02/14/18 at 08:00; Stop 02/14/18 at 11:05; Status DC Aspirin (Aspirin) 300 mg PRN DAILY PRN SC IF UNABLE TO TAKE PO; Start at 14:00; Stop 02/14/18 at 11:05; Status DC Active Scripts Active Prednisone 20 Mg Tablet 50 Mg PO DAILY Levemir Flextouch (Insulin Detemir) 300 Units/3 Ml Insuln.pen 60 Units SQ DAILY Novolog Flexpen (Insulin Aspart) 300 Units/3 Ml Insuln.pen 0 Units SQ TIDWMEALS Reported Levemir (Insulin Detemir) 100 Unit/1 Ml Vial 105 Unit SQ HS Colace (Docusate Sodium) 100 Mg Capsule 1 Cap PO PRN DAILY Aspirin Ec (Aspirin) 81 Mg Tablet.dr 1 Tab PO DAILY Tramadol Hcl 50 Mg Tablet 50 Mg PO Q6HRS PRN Metformin Hcl 1,000 Mg Tablet 1,000 Mg PO BID Gabapentin 300 Mg Capsule 300 Mg PO TID Norvasc (Amlodipine Besylate) 5 Mg Tablet 1 Tab PO DAILY Hydrochlorothiazide Tablet (Hydrochlorothiazide) 12.5 Mg Tablet 2 Tab PO DAILY Losartan Potassium 100 Mg Tablet 100 Mg PO DAILY Hydrochlorothiazide Tablet (Hydrochlorothiazide) 12.5 Mg Tablet 1 Tab PO DAILY Metformin Hcl 1,000 Mg Tablet 1 Tab PO BID Losartan Potassium 100 Mg Tablet 1 Tab PO DAILY Vitals/I & O Vital Sign - Last 24 Hours 02/13/18 02/13/18 02/13/18 02/14/18 15:04 19:00 23:00 03:00 Temp 98.3 98.8 98.8 98.4 98.3 98.8 98.8 98.4 Pulse 82 81 84 89 Resp 20 18 18 B/P (MAP) 110/63 (79) 142/66 (91) 144/74 (97) 129/58 (81) Pulse Ox 97 97 97 98 O2 Delivery Room Air Room Air Room Air Room Air 02/14/18 02/14/18 02/14/18 02/14/18 07:00 08:47 08:48 08:48 Temp 98.3 98.3 Pulse 69 69 69 Resp 20 B/P (MAP) 117/64 (81) 117/64 117/64 Pulse Ox 97 O2 Delivery Room Air Room Air 02/14/18 09:48 O2 Delivery Room Air Intake and Output 02/13/18 02/13/18 02/14/18 15:00 23:00 07:00 Intake Total 390 ml 240 ml Output Total 0 ml Balance 390 ml 240 ml 0 ml Images MRI brain: There is some motion degradation. There is no evidence of recent infarct or intracranial mass effect. Ventricular size is within normal limits. There are a few scattered foci of T2 and FLAIR hyperintense signal of the supratentorial parenchyma bilaterally probably unchanged allowing for motion for both exams. Previously seen T2 and FLAIR hyperintense signal of the right destiny has decreased, no appreciable residual signal change. There is a tiny likely old lacunar infarct of the inferior right cerebellum more apparent on this exam. There is preservation of the major arterial intracranial flow voids at the skull base although poorly evaluated in part from motion. The paranasal sinuses and the mastoid air cells are overall aerated. Cerebellar tonsils are normal in location. There is preserved marrow signal of the clivus. Impression: 1. There is no evidence of recent infarct or intracranial mass effect. Scattered mild T2 and FLAIR hyperintense signal of the supratentorial parenchyma is probably due to chronic microvascular ischemic disease, small old lacunar infarct of the right cerebellum now present. Carotids: RIGHT: The peak systolic velocity within the common carotid artery is 86 cm/sec. The peak systolic velocity within the internal carotid artery is 98 cm/sec and the end diastolic velocity within the internal carotid artery is 24 cm/sec. The ICA/CCA ratio is 1.14. Grayscale images demonstrate no grayscale stenosis. LEFT: The peak systolic velocity within the common carotid artery is 121 cm/sec. The peak systolic velocity within the internal carotid artery is 88 cm/sec and the end diastolic velocity within the internal carotid artery is 24 cm/sec. The ICA/CCA ratio is 0.88. Grayscale images demonstrate no grayscale stenosis. There is antegrade flow within both vertebral arteries. IMPRESSION: 1. No evidence of hemodynamically significant stenosis. Echocardiogram: pending ANJALI ADEN MD Feb 14, 2018 11:56
== END 2018-02-14 10:32 | disposition home or self-care (01) ==
LOC: ER 20:32 → 5 SOUTH 23:20
PROVIDERS: ADMIT Family Medicine; ATTEND Family Medicine
DX: R51 Headache (principal); R42 Dizziness and giddiness; R74.0 Nonspecific elevation of levels of transaminase and lactic acid dehydrogenase [LDH]; I67.4 Hypertensive encephalopathy; I10 Essential (primary) hypertension; E11.9 Type 2 diabetes mellitus without complications; Z79.4 Long term (current) use of insulin; Z88.8 Allergy status to other drugs, medicaments and biological substances
CPT/HCPCS: 36415; 70450; 70551; 80053; 80061; 81001; 82962; 84484; 85025; 85651; 87086; 93005; 93880; 96372; 96374; 96375; 97161; 99285; G0378; G0379; G8978; G8979; G8980; J1815; J2405; J3490; J8597; 87186

== ENCOUNTER → 2018-09-15 | Outpatient (CLI) | payer OTHER ==
[~2018-09-15] MED LIST changes: +AMLO5TAB4 PO; +ASPI-612 PO; +DOCU-109 PO; +GABA300C18 PO; +INSU100V13 SQ; +LOSA100T14 PO; -LOSA100T7 PO; +TRAM50TA PO
--- NOTE | 2018-09-16 07:36 | KCIC ---
EXAM: Bilateral screening mammogram. HISTORY: 53-year-old female presents for screening mammography. TECHNIQUE: Full-field digital craniocaudal and mediolateral oblique views of both breasts are obtained for evaluation. Computer aided detection with CinnafilmD software version 9.3 was applied. COMPARISON: 01/04/2012 BREAST PARENCHYMAL DENSITY: Level C - Heterogeneously dense. FINDINGS: There is no new suspicious mass, microcalcification or region of architectural distortion. There is stable areas of asymmetry and nodularity within both breasts. There are few benign calcifications. IMPRESSION: BI-RADS Category 2: Benign finding(s). RECOMMENDATION: Annual mammography is recommended. If your mammogram demonstrates that you have dense breast tissue, which could hide abnormalities, and if you have other risk factors for breast cancer that have been identified, you might benefit from supplemental screening tests that may be suggested by your ordering physician. Dense breast tissue, in and of itself, is a relatively common condition. This information is not provided to cause undue concern, but rather to raise your awareness and to promote discussion with your physician regarding the presence of other risk factors, in addition to dense breast tissue. A report of your mammography results will be sent to you and your physician. You should contact your physician if you have any questions or concerns regarding this report. Mammography is a sensitive method for finding small breast cancers, but it does not detect them all and is not a substitute for careful clinical examination. A negative mammogram does not negate a clinically suspicious finding and should not result in delay in biopsying a clinically suspicious abnormality. PQRS compliance statement - Patient information was entered into a reminder system with a target due date for the next mammogram. "Our facility is accredited by the [employer] Mammography Program." Electronically signed by: Mila Tilley MD (09/16/2018 7:33 AM) [id number]
== END | disposition home or self-care (01) ==
LOC: KCIC MAMMO 17:39
PROVIDERS: ATTEND Family Medicine
DX: Z12.31 Encounter for screening mammogram for malignant neoplasm of breast (principal); N64.89 Other specified disorders of breast
CPT/HCPCS: 77067

== ENCOUNTER → 2019-05-07 | Outpatient (CLI) | payer BC ==
[~2019-05-07] MED LIST changes: -GLIM4TAB2 PO; +GLIM4TAB8 PO
--- NOTE | 2019-05-07 11:54 | KCIC ---
EXAM: Right knee, 3 views. HISTORY: Pain. COMPARISON: None. FINDINGS: 3 views of the right knee are obtained. There is no fracture, dislocation or subluxation. There is no significant joint effusion. IMPRESSION: No acute osseous finding. Electronically signed by: Mila Tilley MD (05/07/2019 11:51 AM) [facility]
== END | disposition home or self-care (01) ==
LOC: KCIC 11:26
PROVIDERS: ATTEND Family Medicine
DX: M25.561 Pain in right knee (principal); X58.XXXA Exposure to other specified factors, initial encounter; Y93.89 Activity, other specified; Y92.89 Other specified places as the place of occurrence of the external cause; Y99.8 Other external cause status
CPT/HCPCS: 73562

== ENCOUNTER → 2020-11-18 | Outpatient (CLI) | payer OTHER ==
[~2020-11-18] MED LIST changes: -ASPI-612 PO; +ASPI-886 PO
--- NOTE | 2020-11-18 17:35 | KCIC ---
EXAMINATION: XR SHOULDER_LEFT 2+ VIEWS, XR HIP (WITH OR WITHOUT PELVIS)LEFT 1 VIEW CLINICAL HISTORY: Chronic left shoulder pain, acute left hip pain TECHNIQUE: XR SHOULDER_LEFT 2+ VIEWS, XR HIP (WITH OR WITHOUT PELVIS)LEFT 1 VIEW Number of Images/Views: 3 shoulder, 2 hip COMPARISON: None FINDINGS: LEFT SHOULDER: Glenohumeral joint alignment maintained. Acromioclavicular joint maintained. No acute fracture. Acrom iohumeral interval maintained. LEFT HIP: Joint spaces and alignment in the left hip maintained. Right hip unremarkable on limited evaluation. Pubic symphysis maintained. Degenerative changes in the bilateral SI joints and partially visualized lumbar spine, incompletely evaluated. Vascular calcifications. IMPRESSION: No acute osseous abnormality. Electronically signed by: Joshua Hernandez DO (11/18/2020 5:32 PM) [id number]
--- NOTE | 2020-11-21 07:54 | KCIC ---
Bilateral digital screening mammograms: Reason for examination: Routine screening. Comparison is made to previous study dated 09/15/2018. Interpretation was made with the benefit of CAD. Findings: Breast density: Category C. The breasts are heterogeneously dense, which may all masses.. There are no dominant masses, suspicious calcifications or architectural distortions. Impression: No evidence of malignancy. . Assessment: BI-RADS Category 1: Negative. Recommendation: Routine annual mammograms. This patient's information has been entered into a reminder system for the patient to be notified wit h the results of her examination and a target date for the next mammogram. Electronically signed by: Guera Cardoso MD (11/21/2020 7:52 AM) [id number]
== END ==
LOC: KCIC MAMMO 13:15
PROVIDERS: ATTEND Family Medicine
DX: Z12.31 Encounter for screening mammogram for malignant neoplasm of breast (principal); M46.1 Sacroiliitis, not elsewhere classified
CPT/HCPCS: 73030; 73501; 77067

== ENCOUNTER → 2021-01-11 | Outpatient (CLI) | payer OTHER ==
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
== END ==
LOC: KCIC MRI 10:03
PROVIDERS: ATTEND Family Medicine
DX: M75.122 Complete rotator cuff tear or rupture of left shoulder, not specified as traumatic (principal); M19.012 Primary osteoarthritis, left shoulder; M75.92 Shoulder lesion, unspecified, left shoulder; M75.52 Bursitis of left shoulder; R60.0 Localized edema; M25.512 Pain in left shoulder
CPT/HCPCS: 73221